=== PATIENT | female | born 2005 | race Caucasian/White ===

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

== ENCOUNTER 2024-04-06 08:17 | Emergency (ER) | payer OTHER, SELFPAY ==
[2024-04-06 08:30] VITALS: BP 105/70; PULSE 80; RESP 18; TEMP 36.4; O2SAT 100
[2024-04-06 08:50] LABS: EDSTREPNEGPOS1 Negative (Negative)
--- NOTE | 2024-04-06 08:59 | ED.URI ---
HPI - URI/Sore Throat General Chief Complaint: Upper Respiratory Infection Stated Complaint: sore throat Time Seen by Provider: 04/06/24 08:19 Source: patient Mode of arrival: ambulatory Limitations: no limitations History of Present Illness HPI Narrative: 18-year-old female presents to [facility] for complaints of sore throat and dry cough for the past 4 days. Patient has been alternating Motrin and Tylenol with little relief. Patient denies fever, body aches, chills, nausea vomiting or diarrhea. Patient reports that she had strep throat earlier this year. Patient denies recent travel. Patient denies sick contacts. MD elicited complaint: cough and sore throat Onset (ago): day(s) (4) Consistency: constant Able to tolerate fluids by mouth: Yes Exacerbating factors: swallowing Treatments prior to arrival: acetaminophen and ibuprofen Related Data Allergies Allergy/AdvReac Type Severity Reaction Status Date / Time No Known Allergies Allergy Verified 04/06/24 08:31 Review of Systems Constitutional: Constitutional: Denies chills, Denies fatigue, Denies fever(s) and Denies weakness ENT: Denies dizziness, Denies epistaxis, Denies nasal congestion and Reports sore throat Respiratory: Respiratory: Reports cough, Denies dyspnea and Denies wheezing Gastrointestinal: Gastrointestinal: Denies diarrhea, Denies nausea and Denies vomiting Integumentary/Breasts: Skin/Breast: Denies rash PMFSH Past Medical History Medical History Anorexia Depression Social History Social History Smoking status: Never smoker Alcohol intake: never Substance use: never Living arrangements: with family Occupation/Education: student Gender identity (if verbalized by the patient): Female Comments At time of signature, I agree with nursing past medical, surgical, social and family history. There is no relevant family history pertinent to the presenting complaint. Exam Const: General: healthy appearing and no acute distress Nutritional Appearance: well nourished Orientation/consciousness: patient oriented x3 Limitations: no limitations HENMT: Head: normal to inspection Ears: external ears normal and TM's normal bilaterally Face/Nose/Sinus: Normal external nose present and Normal nares present Face and sinus: normal facial exam Mouth: Yes Normal oral and palatal mucosa present Teeth and gingiva: dentition normal Other: moderate erythema noted to the wounds oropharynx; 1+ swelling moderate erythema noted to bilateral tonsils. There is no exudate or peritonsillar abscess noted. Eyes: Conjunctivae: conjunctivae normal Neck: Neck: normal visual inspection Resp: Effort & Inspection: normal respiratory effort and not labored Auscultation: clear to auscultation bilaterally, no crackles, no rales, no rhonchi and no wheezes Cardio: Rate: regular rate Rhythm: regular rhythm Heart sounds: no murmurs Skin: General skin exam: normal color Rashes: no rashes Neuro: General: patient oriented x3 Speech: normal speech Gait exam (Neuro): Normal gait present Extrem: General: normal to inspection Psych: Affect: normal affect Attitude: cooperative Course Course Level of Care: Express Care Visit Vital Signs Vital signs: Vital Signs Temperature 36.4 C 04/06/24 08:30 Pulse Rate 80 04/06/24 08:30 Respiratory Rate 18 04/06/24 08:30 Blood Pressure 105/70 04/06/24 08:30 Pulse Oximetry 100 04/06/24 08:30 Oxygen Delivery Room Air 04/06/24 08:30 Temperature 36.4 C 04/06/24 08:30 Pulse Rate 80 04/06/24 08:30 Respiratory Rate 18 04/06/24 08:30 Blood Pressure 105/70 04/06/24 08:30 Pulse Oximetry 100 04/06/24 08:30 Oxygen Delivery Room Air 04/06/24 08:30 MDM - URI/Sore Throat MDM Narrative Medical decision making narrative: Discussed lab results with patient. educated patient to alternate Motrin and Tylenol as needed for symptom relief. Strep culture obtained and sent to lab. Educated patient to proceed to the emergency room if symptoms worsen Differential Diagnosis Differential diagnosis: Likely sinusitis, bronchitis and pharyngitis Lab Data Labs: Lab Results 04/06/24 04/06/24 Range/Units 08:49 09:13 POC SARS CoV-2 Ag Negative (Negative) POC Grp A Strep Screen Negative (Negative) Critical Care Time Critical Care Time Critical Care Time: No Discharge Plan Discharge Clinical Impression: Acute tonsillitis Qualifiers: Pharyngitis/tonsillitis etiology: unspecified etiology Qualified Code(s): J03.90 - Acute tonsillitis, unspecified Patient Disposition: Home, Self-Care Condition: Stable Instructions: Antibiotic Form, Tonsillitis (ED) Additional Instructions: Rest Increase fluids Warm saltwater gargles as needed Take amoxicillin as prescribed Dispose of toothbrush 24 hours after starting antibiotic Follow-up with primary care provider if symptoms not improved Proceed to the emergency room if symptoms worsen Patient Language: Nepali Prescriptions: New amoxicillin 500 mg capsule 500 mg PO Q12H 10 Days Qty: 20 0RF Follow-up/Referrals: PHYSICIAN,DOUBLE NEEDLE OPERATOR LOCKSTITCH [Primary Care Provider] - Stand Alone Forms: Work/School Release IP Time of Disposition: 09:18
[2024-04-06 09:15] LABS: EDCOVIDSCREEN Negative (Negative)
[2024-04-06 13:45] LABS: EDINFLUASCREEN Negative (Negative); EDINFLUBSCREEN Negative (Negative)
--- OUTSIDE RECORDS SUMMARY | 2024-04-13 06:46 | XMS_ITS | Continuity of Care Document ---
Author Name [facility] Organization [facility] Care Team Providers Care Geoint Analyst Name Role Phone [facility] Unavailable Unavailable Problems Combined list of problems from Department of Defense and Veterans Affairs facilities. It does not include entries that were removed or entered in error. Problem Status Onset Date Problem Type Date of Resolution Comme nts Source Scoliosis, unspecified Active Condition [facility] Outpatient Physician Consultation Active Condition [facility] Medications Combined list of outpatient medications from Department of Defense and Veterans Affairs facilities.Medications provided include 1) outpatient medications from the last 15 months, and 2) patient-reported medications. Medication Details Route Status Patient Instructions Prescription Expires Prescription Number Last Dispense Date Ordering Provider Order Date Order Qty Source Afrin 0.05% nasal spray 2 spray(s) , Nostril- Both, BID, not to exceed 2 doses/da y and do not use for more than 3 days., # 15 mL, 0 total refill(s ), Acute, 2 spray(s) Nostril- Both BID,Inst r:not to exceed 2 doses/da y and do not use for more than 3 days., Pharmacy : [facility] Nostri l-Both (into the nose) Discont inued 11/29/2022 15.0 [facility]55[facility] Augmentin 875 mg-125 mg oral tablet 1 tab(s), Oral, every 12 hr, X 7 days, # 14 tab(s), 0 total refill(s ), Acute, 11/29/22 9:44:00 AM CDT, 1 tab(s) Oral every 12 hr,x7 days, Pharmacy : [facility] Oral (given by mouth) Discont inued 11/29/2022 14.0 [facility]55C[facility]iago Flonase 50 mcg/inh nasal spray 100 mcg, Nostril- Both, Daily, # 48 g, 3 total refill(s ), Maintena nce, 100 mcg Nostril- Both Daily, Pharmacy : [facility] Nostri l-Both (into the nose) Discont inued 11/29/2022 48.0 0055C-[address] [place], [place] [address]Bee Das HYDROXYCHLO ROQUINE SULFATE (HYDROXYCHL OROQUINE SULFATE), 200MG, TABLET, ORAL, [facility], 500 ea. BOTTLE Active [id number] 3 2023 30 Pharmac y Data Transac tion Service Facilit y [facility] Sinus Rinse Kit nasal powder for reconstitut ion See Instruct ions, PRN congesti on, Follow package instruct ions for use with purified or distille d water only as needed for congesti on., # 1 EA, 0 total refill(s ), Maintena nce, Follow package instruct ions for use with purified or distille d water only as needed for congesti on.,PRN: congesti on, Pharmacy : [facility] Discont inued 11/29/2022 1.0 0055C-[address] [place], [place] [address]Bee Das phenylephri ne 10 mg oral tablet 1 tab(s), Oral, every 4 hr, PRN congesti on, not to exceed 4 doses/da y, # 36 tab(s), 0 total refill(s ), Acute, 1 tab(s) Oral every 4 hr,PRN:c ongestio n,Instr: not to exceed 4 doses/da y, Pharmacy : [facility] Oral (given by mouth) Discont inued 11/29/2022 36.0 0055C-[address] [place] [address] Thiago predniSONE 10 mg oral tablet See Instruct ions, Take 4 tabs once daily for 7 days then 3 tabs daily for 7 days then 2 tabs daily for 7 days then 1 tab daily for 7 days., # 70 tab(s), 0 total refill(s ), Maintena nce, Take 4 tabs once daily for 7 days then 3 tabs daily for 7 days then 2 tabs daily for 7 days then 1 tab daily for 7 days., Pharmacy : [facility] Ordered 70.0 0055C-[address] [place] [address] Thiago ZyrTEC 10 mg oral tablet 1 tab(s), Oral, Daily, PRN allergy symptoms , # 90 tab(s), 3 total refill(s ), Maintena nce, 1 tab(s) Oral Daily,CT N:allerg y symptoms , Pharmacy : [facility] Oral (given by mouth) Discont inued 11/29/2022 90.0 0055C-[address] [place] [address] Allergies, Adverse Reactions, Alerts Combined list of allergies from Department of Defense and Veterans Affairs facilities. It does not include entries that were removed or entered in error. Substance Category Reaction Severity Reaction type Status Date Reported Comments Source No Known Allergies Drug allergy (disorder) [facility] Immunizations Combined list of available immunizations from the Department of Defense and Veterans Affairs facilities. 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 Source influenza, injectable, quadrivalent- pf 2020 zzLef t Arm [id number] 150 [employer] complet ed influenza , injectabl e, quadrival ent-pf 03/26/21 Given Ambulat ory Pharmac y influenza, injectable, quadrivalent- pf 2020 [id number] 150 Gl[employer]oSmithK[employer] ne complet ed influenza , injectabl e, quadrival ent-pf 03/26/21 Given Ambulat ory Pharmac y Influenza, injectable, quadrivalent, preservative free 1 2020 Unknown, Provider [id number] 150 [employer] (SKB) complet ed Influenza , injectabl e, quadrival ent, preservat scott free [facility] tetanus-dipht h toxoids (Td) adult/adol 2020 zzAdam ht Arm [id number] 09 sanofi pasteur complet ed tetanus-d iphth toxoids (Td) adult/ado l 01/21/21 Given Ambulat ory Pharmac y tetanus-dipht h toxoids (Td) adult/adol 2020 [id number] 09 sanofi pasteur complet ed tetanus-d iphth toxoids (Td) adult/ado l 01/21/21 Given Ambulat ory Pharmac y tetanus and diphtheria toxoids, adsorbed, preservative free, for adult use (2 Lf of tetanus toxoid and 2 Lf of diphtheria toxoid) 1 2020 Unknown, Provider [id number] 09 Sanofi Pasteur (PMC) complet ed tetanus and diphtheri a toxoids, adsorbed, preservat scott free, for adult use (2 Lf of tetanus toxoid and 2 Lf of diphtheri a toxoid) [facility] meningococcal oligosacchari de (MCV4O) 2020 zKulwant ht Arm [id number] 136 GlaxoSmithKli ne complet ed meningoco ccal oligosacc haride (MCV4O) 11/20/20 Given Ambulat ory Pharmac y meningococcal oligosacchari de (MCV4O) 2020 [id number] 136 GlaxoSmithKli ne complet ed meningoco ccal oligosacc haride (MCV4O) 11/20/20 Given Ambulat ory Pharmac y meningococcal oligosacchari de (groups A, C, Y and W-135) diphtheria toxoid conjugate vaccine (MCV4O) 1 2020 Unknown, Provider [id number] 136 [employer]line (SKB) complet ed meningoco ccal oligosacc haride (groups A, C, Y and W-135) diphtheri a toxoid conjugate vaccine (MCV4O) DoD influenza, injectable, quadrivalent- pf 2019 TRANSCR IBED 150 Se[employer] complet ed influenza , injectabl e, quadrival ent-pf 01/11/20 Given Ambulat ory Pharmac y Influenza, injectable, MDCK, preservative free, quadrivalent 2019 ALUL, () Not Given Influenza , injectabl e, MDCK, preservat scott free, quadrival ent DoD Influenza, injectable, quadrivalent, preservative free 1 2019 Unknown, Provider 150 Se[employer] (SEQ) complet ed Influenza , injectabl e, quadrival ent, preservat scott free DoD influenza, injectable, quadrivalent- pf 2018 zzLef t Arm [id number] 150 [employer] complet ed influenza , injectabl e, quadrival ent-pf 03/08/19 Given Ambulat ory Pharmac y influenza, injectable, quadrivalent- pf 2018 [id number] 150 [employer] complet ed influenza , injectabl e, quadrival ent-pf 03/08/19 Given Ambulat ory Pharmac y Influenza, injectable, quadrivalent, preservative free 1 2018 Unknown, Provider [id number] 150 [employer] (SEQ) complet ed Influenza , injectabl e, quadrival ent, preservat scott free DoD influenza, injectable, quadrivalent- pf 2017 zzLef t Arm [id number] 150 GlaxoSmithKli ne complet ed influenza , injectabl e, quadrival ent-pf 02/20/18 Given Ambulat ory Pharmac y influenza, injectable, quadrivalent- pf 2017 [id number] 150 [facility] , injectabl e, quadrival ent-pf 02/20/18 Given Ambulat ory Pharmac y Influenza, injectable, quadrivalent, preservative free 1 2017 Unknown, Provider [id number] 150 [facility] (SKB) complet ed Influenza , injectabl e, quadrival ent, preservat scott free DoD meningococcal A,C,Y,W-135 (MCV4P) 2016 [facility] Arm [id number] 114 [employer] complet ed meningoco ccal A,C,Y,W-1 35 (MCV4P) 03/23/17 Given Ambulat ory Pharmac y tetanus, diphtheria, acellular pertu is 2016 zzL t Arm [id number] 115 [facility] complet ed tetanus, diphtheri a, acellular pertussis 03/23/17 Given Ambulat ory Pharmac y Influenza, inj, MDCK, quadrivalent- pf 2016 zzRig Arm [id number] 171 [employer] complet ed Influenza , inj, MDCK, quadrival ent-pf 03/23/17 Given Ambulat ory Pharmac y Influenza, inj, MDCK, quadrivalent- pf 2016 [id number] 171 [employer] complet ed Influenza , inj, MDCK, quadrival ent-pf 03/23/17 Given Ambulat ory Pharmac y tetanus, diphtheria, acellular pertu is 2016 [id number] 115 [facility] ne complet ed tetanus, diphtheri a, acellular pertussis 03/23/17 Given Ambulat ory Pharmac y meningococcal A,C,Y,W-135 (MCV4P) 2016 [id number] 114 [employer] complet ed meningoco ccal A,C,Y,W-1 35 (MCV4P) 03/23/17 Given Ambulat ory Pharmac y meningococcal polysaccharid e (groups A, C, Y and W-135) diphtheria toxoid conjugate vaccine (MCV4P) 1 2016 Unknown, Provider [id number] 114 [employer]. (NOV) complet ed meningoco ccal polysacch aride (groups A, C, Y and W-135) diphtheri a toxoid conjugate vaccine (MCV4P) DoD tetanus toxoid, reduced diphtheria toxoid, and acellular pertu is vaccine, adsorbed 1 2016 Unknown, Provider [id number] 115 [employer] (SKB) complet ed tetanus toxoid, reduced diphtheri a toxoid, and acellular pertussis vaccine, adsorbed DoD Influenza, injectable, Madin Bonnie Canine Kidney, preservative free, quadrivalent 1 2016 Unknown, Provider [id number] 171 [employer] (SEQ) complet ed Influenza , injectabl e, Madin Troy Canine Kidney, preservat scott free, quadrival ent DoD Human Papillomaviru s 9-valent vaccine 2016 zzLef t Arm [id number] 165 [employer]ck [employer] Inc complet ed Human Papilloma virus 9-valent vaccine 07/21/16 Given Ambulat ory Pharmac y Human Papillomaviru s 9-valent vaccine 2016 [id number] 165 [employer] Inc complet ed Human Papilloma virus 9-valent vaccine 07/21/16 Given Ambulat ory Pharmac y Human Papillomaviru s 9-valent vaccine 1 2016 Unknown, Provider [id number] 165 Merck (MSD) complet ed Human Papilloma virus 9-valent vaccine DoD Human Papillomaviru s,quadrivalen t(HPV4) 2015 TRANSCR IBED 62 complet ed Human Papilloma virus,miracle drivalent (HPV4) 01/08/16 Given Ambulat ory Pharmac y Human Papillomaviru s,quadrivalen t(HPV4) 2015 TRANSCR IBED 62 complet ed Human Papilloma virus,miracle drivalent (HPV4) 01/08/16 Given Ambulat ory Pharmac y human papilloma virus vaccine, quadrivalent 2 2015 Unknown, Provider 62 Transcribed (TRS) complet ed human papilloma virus vaccine, quadrival ent DoD Human Papillomaviru s,quadrivalen t(HPV4) 2015 TRANSCR IBED 62 complet ed Human Papilloma virus,miracle drivalent (HPV4) 11/03/15 Given Ambulat ory Pharmac y Human Papillomaviru s,quadrivalen t(HPV4) 2015 TRANSCR IBED 62 complet ed Human Papilloma virus,miracle drivalent (HPV4) 11/03/15 Given Ambulat ory Pharmac y human papilloma virus vaccine, quadrivalent 1 2015 Unknown, Provider 62 Transcribed (TRS) complet ed human papilloma virus vaccine, quadrival ent DoD influenza, seasonal, injectable 2012 zzLef t Arm [id number] 141 sanofi pasteur complet ed influenza , seasonal, injectabl e 02/22/13 Given Ambulat ory Pharmac y influenza, seasonal, injectable 2012 [id number] 141 sanofi pasteur complet ed influenza , seasonal, injectabl e 02/22/13 Given Ambulat ory Pharmac y Influenza, seasonal, injectable 1 2012 Unknown, Provider [id number] 141 Sanofi Pasteur (PMC) complet ed Influenza , seasonal, injectabl e DoD influenza virus vaccine, live 2011 [id number] 111 Medimmune Inc comple t ed influenza virus vaccine, live 02/07/12 Given Ambulat ory Pharmac y influenza virus vaccine, live 2011 [id number] 111 [employer] Inc comple t ed influenza virus vaccine, live 02/07/12 Given Ambulat ory Pharmac y influenza virus vaccine, live, attenuated, for intranasal use 5 2011 Unknown, Provider [id number] 111 MedImmune, Inc. (MED) complet ed influenza virus vaccine, live, attenuate d, for intranasa l use DoD influenza, seasonal, injectable 2009 TRANSCR IBED 141 complet ed influenza , seasonal, injectabl e 01/04/10 Given Ambulat ory Pharmac y influenza, seasonal, injectable 2009 TRANSCR IBED 141 complet ed influenza , seasonal, injectabl e 01/04/10 Given Ambulat ory Pharmac y Influenza, seasonal, injectable 4 2009 Unknown, Provider 141 Transcribed (TRS) complet ed Influenza , seasonal, injectabl e DoD measles/mumps /rubella virus vaccine 2009 TRANSCR IBED 03 complet ed measles/m umps/rube lla virus vaccine 07/30/09 Given Ambulat ory Pharmac y poliovirus vaccine, inactivated 2009 TRANSCR IBED 10 complet ed polioviru s vaccine, inactivat ed 07/30/09 Given Ambulat ory Pharmac y varicella virus vaccine 2009 TRANSCR IBED 21 complet ed varicella virus vaccine 07/30/09 Given Ambulat ory Pharmac y Hep A, pediatric, unspecified formul 2009 TRANSCR IBED 31 complet ed Hep A, pediatric , unspecifi ed formul 07/30/09 Given Ambulat ory Pharmac y DTaP 2009 TRANSCR IBED 20 complet ed DTaP 07/30/09 Given Ambulat ory Pharmac y measles/mumps /rubella virus vaccine 2009 TRANSCR IBED 03 complet ed measles/m umps/rube lla virus vaccine 07/30/09 Given Ambulat ory Pharmac y DTaP 2009 TRANSCR IBED 20 complet ed DTaP 07/30/09 Given Ambulat ory Pharmac y poliovirus vaccine, inactivated 2009 TRANSCR IBED 10 complet ed polioviru s vaccine, inactivat ed 07/30/09 Given Ambulat ory Pharmac y varicella virus vaccine 2009 TRANSCR IBED 21 complet ed varicella virus vaccine 07/30/09 Given Ambulat ory Pharmac y Hep A, pediatric, unspecified formul 2009 TRANSCR IBED 31 complet ed Hep A, pediatric , unspecifi ed formul 07/30/09 Given Ambulat ory Pharmac y measles, mumps and rubella virus vaccine 2 2009 Unknown, Provider 03 Transcribed (TRS) complet ed measles, mumps and rubella virus vaccine DoD poliovirus vaccine, inactivated 4 2009 Unknown, Provider 10 Transcribed (TRS) complet ed polioviru s vaccine, inactivat ed DoD diphtheria, tetanus toxoids and acellular pertu is vaccine 5 2009 Unknown, Provider 20 Transcribed (TRS) complet ed diphtheri a, tetanus toxoids and acellular pertussis vaccine DoD varicella virus vaccine 2 2009 Unknown, Provider 21 Transcribed (TRS) complet ed varicella virus vaccine DoD hepatitis A vaccine, pediatric dosage, unspecified formulation 2 2009 Unknown, Provider 31 Transcribed (TRS) complet ed hepatitis A vaccine, pediatric dosage, unspecifi ed formulati on DoD influenza virus vaccine, live 2008 TRANSCR IBED 111 complet ed influenza virus vaccine, live 01/10/09 Given Ambulat ory Pharmac y influenza virus vaccine, live 2008 TRANSCR IBED 111 complet ed influenza virus vaccine, live 01/10/09 Given Ambulat ory Pharmac y influenza virus vaccine, live, attenuated, for intranasal use 3 2008 Unknown, Provider 111 Transcribed (TRS) complet ed influenza virus vaccine, live, attenuate d, for intranasa l use DoD Hep A, pediatric, unspecified formul 2006 TRANSCR IBED 31 complet ed Hep A, pediatric , unspecifi ed formul 10/12/06 Given Ambulat ory Pharmac y Hep A, pediatric, unspecified formul 2006 TRANSCR IBED 31 complet ed Hep A, pediatric , unspecifi ed formul 10/12/06 Given Ambulat ory Pharmac y hepatitis A vaccine, pediatric dosage, unspecified formulation 1 2006 Unknown, Provider 31 Transcribed (TRS) complet ed hepatitis A vaccine, pediatric dosage, unspecifi ed formulati on DoD DTaP 2005 TRANSCR IBED 20 complet ed DTaP 02/28/06 Given Ambulat ory Pharmac y poliovirus vaccine, inactivated 2005 TRANSCR IBED 10 complet ed polioviru s vaccine, inactivat ed 02/28/06 Given Ambulat ory Pharmac y influenza, seasonal, injectable 2005 TRANSCR IBED 141 complet ed influenza , seasonal, injectabl e 02/28/06 Given Ambulat ory Pharmac y influenza, seasonal, injectable 2005 TRANSCR IBED 141 complet ed influenza , seasonal, injectabl e 02/28/06 Given Ambulat ory Pharmac y poliovirus vaccine, inactivated 3 2005 Unknown, Provider 10 Transcribed (TRS) complet ed polioviru s vaccine, inactivat ed DoD diphtheria, tetanus toxoids and acellular pertu is vaccine 4 2005 Unknown, Provider 20 Transcribed (TRS) complet ed diphtheri a, tetanus toxoids and acellular pertussis vaccine DoD Influenza, seasonal, injectable 2 2005 Unknown, Provider 141 Transcribed (TRS) complet ed Influenza , seasonal, injectabl e DoD pneumococcal 7-valent vaccine 2005 TRANSCR IBED 100 complet ed pneumococ daniel 7-valent vaccine 11/26/05 Given Ambulat ory Pharmac y Hib, unspecified formulation 2005 TRANSCR IBED 17 complet ed Hib, unspecifi ed formulati on 11/26/05 Given Ambulat ory Pharmac y pneumococcal 7-valent vaccine 2005 TRANSCR IBED 100 complet ed pneumococ daniel 7-valent vaccine 11/26/05 Given Ambulat ory Pharmac y Hib, unspecified formulation 2005 TRANSCR IBED 17 complet ed Hib, unspecifi ed formulati on 11/26/05 Given Ambulat ory Pharmac y Haemophilus influenzae type b vaccine, conjugate unspecified formulation 4 2005 Unknown, Provider 17 Transcribed (TRS) complet ed Haemophil us influenza e type b vaccine, conjugate unspecifi ed formulati on DoD pneumococcal conjugate vaccine, 7 valent 4 2005 Unknown, Provider 100 Transcribed (TRS) complet ed pneumococ daniel conjugate vaccine, 7 valent DoD tuberculin purified protein derivative 2005 TRANSCR IBED 96 complet ed Patient Tolerance : Negative Ambulat ory Pharmac y varicella virus vaccine 2005 TRANSCR IBED 21 complet ed varicella virus vaccine 08/27/05 Given Ambulat ory Pharmac y measles/mumps /rubella virus vaccine 2005 TRANSCR IBED 03 complet ed measles/m umps/rube lla virus vaccine 08/27/05 Given Ambulat ory Pharmac y tuberculin purified protein derivative 2005 TRANSCR IBED 96 complet ed tuberculi n purified protein derivativ e 08/27/05 Given Ambulat ory Pharmac y varicella virus vaccine 2005 TRANSCR IBED 21 complet ed varicella virus vaccine 08/27/05 Given Ambulat ory Pharmac y measles/mumps /rubella virus vaccine 2005 TRANSCR IBED 03 complet ed measles/m umps/rube lla virus vaccine 08/27/05 Given Ambulat ory Pharmac y measles, mumps and rubella virus vaccine 1 2005 Unknown, Provider 03 Transcribed (TRS) complet ed measles, mumps and rubella virus vaccine DoD varicella virus vaccine 1 2005 Unknown, Provider 21 Transcribed (TRS) complet ed varicella virus vaccine DoD tuberculin skin test; purified protein derivative solution, intradermal 1 2005 Unknown, Provider 96 Transcribed (TRS) complet ed tuberculi n skin test; purified protein derivativ e solution, intraderm al DoD hepatitis B pediatric/ado lescent 2005 TRANSCR IBED 08 complet ed hepatitis B pediatric /adolesce nt 05/30/05 Given Ambulat ory Pharmac y hepatitis B pediatric/ado lescent 2005 TRANSCR IBED 08 complet ed hepatitis B pediatric /adolesce nt 05/30/05 Given Ambulat ory Pharmac y hepatitis B vaccine, pediatric or pediatric/ado lescent dosage 3 2005 Unknown, Provider 08 Transcribed (TRS) complet ed hepatitis B vaccine, pediatric or pediatric /adolesce nt dosage DoD DTaP 2004 TRANSCR IBED 20 complet ed DTaP 03/01/05 Given Ambulat ory Pharmac y influenza, seasonal, injectable 2004 TRANSCR IBED 141 complet ed influenza , seasonal, injectabl e 03/01/05 Given Ambulat ory Pharmac y pneumococcal 7-valent vaccine 2004 TRANSCR IBED 100 complet ed pneumococ daniel 7-valent vaccine 03/01/05 Given Ambulat ory Pharmac y Hib, unspecified formulation 2004 TRANSCR IBED 17 complet ed Hib, unspecifi ed formulati on 03/01/05 Given Ambulat ory Pharmac y pneumococcal 7-valent vaccine 2004 TRANSCR IBED 100 complet ed pneumococ daniel 7-valent vaccine 03/01/05 Given Ambulat ory Pharmac y influenza, seasonal, injectable 2004 TRANSCR IBED 141 complet ed influenza , seasonal, injectabl e 03/01/05 Given Ambulat ory Pharmac y Hib, unspecified formulation 2004 TRANSCR IBED 17 complet ed Hib, unspecifi ed formulati on 03/01/05 Given Ambulat ory Pharmac y DTaP 2004 TRANSCR IBED 20 complet ed DTaP 03/01/05 Given Ambulat ory Pharmac y Haemophilus influenzae type b vaccine, conjugate unspecified formulation 3 2004 Unknown, Provider 17 Transcribed (TRS) complet ed Haemophil us influenza e type b vaccine, conjugate unspecifi ed formulati on DoD diphtheria, tetanus toxoids and acellular pertu is vaccine 3 2004 Unknown, Provider 20 Transcribed (TRS) complet ed diphtheri a, tetanus toxoids and acellular pertussis vaccine DoD pneumococcal conjugate vaccine, 7 valent 3 2004 Unknown, Provider 100 Transcribed (TRS) complet ed pneumococ daniel conjugate vaccine, 7 valent DoD Influenza, seasonal, injectable 1 2004 Unknown, Provider 141 Transcribed (TRS) complet ed Influenza , seasonal, injectabl e DoD poliovirus vaccine, inactivated 2004 TRANSCR IBED 10 complet ed polioviru s vaccine, inactivat ed 04 Given Ambulat ory Pharmac y Hib, unspecified formulation 2004 TRANSCR IBED 17 complet ed Hib, unspecifi ed formulati on 04 Given Ambulat ory Pharmac y pneumococcal 7-valent vaccine 2004 TRANSCR IBED 100 complet ed pneumococ daniel 7-valent vaccine 04 Given Ambulat ory Pharmac y DTaP 2004 TRANSCR IBED 20 complet ed DTaP 04 Given Ambulat ory Pharmac y poliovirus vaccine, inactivated 2004 TRANSCR IBED 10 complet ed polioviru s vaccine, inactivat ed 04 Given Ambulat ory Pharmac y Hib, unspecified formulation 2004 TRANSCR IBED 17 complet ed Hib, unspecifi ed formulati on 04 Given Ambulat ory Pharmac y poliovirus vaccine, inactivated 2 2004 Unknown, Provider 10 Transcribed (TRS) complet ed polioviru s vaccine, inactivat ed DoD Haemophilus influenzae type b vaccine, conjugate unspecified formulation 2 2004 Unknown, Provider 17 Transcribed (TRS) complet ed Haemophil us influenza e type b vaccine, conjugate unspecifi ed formulati on DoD diphtheria, tetanus toxoids and acellular pertu is vaccine 2 2004 Unknown, Provider 20 Transcribed (TRS) complet ed diphtheri a, tetanus toxoids and acellular pertussis vaccine DoD pneumococcal conjugate vaccine, 7 valent 2 2004 Unknown, Provider 100 Transcribed (TRS) complet ed pneumococ daniel conjugate vaccine, 7 valent DoD poliovirus vaccine, inactivated 2004 TRANSCR IBED 10 complet ed polioviru s vaccine, inactivat ed 04 Given Ambulat ory Pharmac y DTaP 2004 TRANSCR IBED 20 complet ed DTaP 04 Given Ambulat ory Pharmac y pneumococcal 7-valent vaccine 2004 TRANSCR IBED 100 complet ed pneumococ daniel 7-valent vaccine 04 Given Ambulat ory Pharmac y Hib, unspecified formulation 2004 TRANSCR IBED 17 complet ed Hib, unspecifi ed formulati on 04 Given Ambulat ory Pharmac y DTaP 2004 TRANSCR IBED 20 complet ed DTaP 04 Given Ambulat ory Pharmac y pneumococcal 7-valent vaccine 2004 TRANSCR IBED 100 complet ed pneumococ daniel 7-valent vaccine 04 Given Ambulat ory Pharmac y poliovirus vaccine, inactivated 2004 TRANSCR IBED 10 complet ed polioviru s vaccine, inactivat ed 04 Given Ambulat ory Pharmac y poliovirus vaccine, inactivated 1 2004 Unknown, Provider 10 Transcribed (TRS) complet ed polioviru s vaccine, inactivat ed DoD Haemophilus influenzae type b vaccine, conjugate unspecified formulation 1 2004 Unknown, Provider 17 Transcribed (TRS) complet ed Haemophil us influenza e type b vaccine, conjugate unspecifi ed formulati on DoD diphtheria, tetanus toxoids and acellular pertu is vaccine 2004 Unknown, Provider 20 Transcribed (TRS) complet ed diphtheri a, tetanus toxoids and acellular pertussis vaccine DoD pneumococcal conjugate vaccine, 7 valent 1 2004 Unknown, Provider 100 Transcribed (TRS) complet ed pneumococ daniel conjugate vaccine, 7 valent DoD hepatitis B pediatric/ado lescent 2004 TRANSCR IBED 08 complet ed hepatitis B pediatric /adolesce nt 04 Given Ambulat ory Pharmac y hepatitis B vaccine, pediatric or pediatric/ado lescent dosage 2 2004 Unknown, Provider 08 Transcribed (TRS) complet ed hepatitis B vaccine, pediatric or pediatric /adolesce nt dosage DoD hepatitis B pediatric/ado lescent 2004 TRANSCR IBED 08 complet ed hepatitis B pediatric /adolesce nt 04 Given Ambulat ory Pharmac y hepatitis B pediatric/ado lescent 2004 TRANSCR IBED 08 complet ed hepatitis B pediatric /adolesce nt 04 Given Ambulat ory Pharmac y hepatitis B vaccine, pediatric or pediatric/ado lescent dosage 1 2004 Unknown, Provider 08 Transcribed (TRS) complet ed hepatitis B vaccine, pediatric or pediatric /adolesce nt dosage DoD Vital Signs Combined list of inpatient and outpatient Vital Signs from Department of Defense and Veterans Affairs, ranging from 12 months to all on record, depending upon the facility. Vital Sign Value Date Comments Source Systolic Blood Pressure 111mm[Hg] 11/10/2022 19:47:00 Ambulatory Pharmacy Diastolic Blood Pressure 79mm[Hg] 11/10/2022 19:47:00 Ambulatory Pharmacy Mean Arterial Pressure, Calc 90mm[Hg] 11/10/2022 19:47:00 Ambulatory P harmacy Peripheral Pulse Rate 92bpm 11/10/2022 19:47:00 Ambulatory Pharmacy Respiratory Rate 16br/min 11/10/2022 19:47:00 Ambulatory Pharmacy Temperature Oral 36.6Cel 11/10/2022 19:47:00 Ambulatory Pharmacy BP Site 11/10/2022 19:47:00 Ambul atory Pharmacy Blood Pressure Manual 11/10/2022 19:47:00 Ambulatory Pharmacy Encounters Combined list of: 1) Encounters from Department of Veterans Affairs facilities going back up to thelast 18 months. 2) Encounters from the Department of [facility] facilities going back up to 280 months. Location Location Details Encounter Type Encounter Number Reason For Visit Attending Provider ADM Date DC Date Status Disposition Source [address] [place] [address])(Ilo tt Flight Medicine Tm) TELE CONSULT [id number] Notes Entered by: LINDA COOL 29 Apr 2013 1553 ------- ------- ------- ------- -- Network Results -EMMANUEL REYNA 3 SUYAPA MORAN 04/[address] [place] [address] Thiago Jose Antonio [facility]S cott Flight Medicin e Tm) [address] [place] [address] Thiago [facility])(War rior Op Med Cln Tm A Ad) OUTPATIENT [id number] wart removal . DAISY MONTALVO 07/21 Released w/o Limitations [address] [place] [address] Thiago Jose Antonio [facility])(W arrior Op Med Cln Tm A Ad) [address] [place] [address])(Sco tt Peds Team Angel Luis) OUTPATIENT [id number] xb R knee pain/bu ckling/ / JOHNNY REED 11/08 Released w/o Limitations [address] [place] [address] Group Th[place]ago [place]EMP [place] Peds Team Angel Luis) [address] [place] [address] Thiago VIRIDIANA [facility]Min or Procedure Clinic) OUTPATIENT [id number] Pain in right knee INDIGO KEYS Dk 11/15 Released w/o Limitations [address] [place] [address] Group Thiago KEMP [place]M inor Procedu re Clinic) [address] [place] [address] Thiago [facility])(Sco tt Peds Team Angel Luis) TELE CONSULT [id number] Notes Entered by: OTONIEL PINO 22 Dec 2016 1037 ------- ------- ------- ------- -- Network results Physica l Therapy 017 AMD CARLOS A MARIA 12/[address] [place] [address] Thiago JORGE LUISJose Antonio ([facility]S cott Peds Team Angel Luis) [address] [place] [address] Thiago [facility])(Ilo tt Peds Team Angel Luis) OUTPATIENT [id number] [facility] [id number] CARLOS A MARIA 05/30 Released w/o Limitations [address] [place] [address] Thiago [facility])(S cott Peds Team Angel Luis) [address] [place] [address] Thiago [facility])(Ilo tt Peds Team Angel Luis) OUTPATIENT [id number] nodule behind right ear and physica l CARLOS A MARIA 11/07 Released w/o Limitations [address] [place] [address] Thiago [facility])(S cott Peds Team Angel Luis) [address] [place] [address] Thiago [facility])(Sco tt Peds Team Angel Luis) TELE CONSULT [id number] Notes Entered by: KARLO ELLIS 13 Nov 2017 0730 ------- ------- ------- ------- -- X ray CARLOS A MARIA 11/[address] [place] [address] Thiago JORGE LUISB ([facility]S cott Peds Team Angel Luis) [address] [place] [address] Thiago B [facility])(Sco tt Peds Team Angel Luis) OUTPATIENT [id number] 5 School / sports physica l [id number] TERESA CADENA 11/23 Released w/o Limitations [address] [place] [address] Group Thiago [facility])(S cott Peds Team Angel Luis) [address] [place] [address])([facility] [place] Luis) TELE CONSULT [id number] 5 Notes Entered by: KATHY HERNANDEZ 25 Dec 2018 0854 ------- ------- ------- ------- -- orthope dic referra l/ broken index finger right hand/Tu CIRA Helms 12/25 Referred for Appointment [address] [place] [address])(S cott Peds Team Angel Luis) [address] [place] [address])([facility] [place] [place] Luis) TELE CONSULT [id number] 5 Notes Entered by: Madelyn ROBERTSON 01 Jan 2019 1449 ------- ------- ------- ------- -- Network results Ortho 12/28/19 19 RODNEYB TERESA CADENA 01/[address] [place] [address] Group [facility])(S cott Peds Team Angel Luis) [address] [place] [address])(Ilo tt Peds Team Angel Luis) OUTPATIENT [id number] Rash on edie fac x 1 week TERESA CADENA 02/21 Released w/o Limitations [address] [place] [address])(S cott Peds Team Angel Luis) [address] [place] [address])(Ilo tt Peds Team Angel Luis) TELE CONSULT [id number] 4 Notes Entered by: CHAYITO CRISTINA 02 Oct 2019 1136 ------- ------- ------- ------- -- Sinan loomisa l/Turne r [phone] JOSEPH WALDRON 10/01 Other Not Elsewhere Classified [address] [place] [address])(S cott Peds Team Angel Luis) [address] [place] [address])(Ilo tt Peds Team Angel Luis) TELE CONSULT [id number] Notes Entered by: ARAVIND BYRNE 10 Oct 2019 0928 ------- ------- ------- ------- -- Physica l/CIRA Cabral 10/09 Other Not Elsewhere Classified [address] [place] [address] Group [facility])(S cott Peds Team Angel Luis) [address] [place] [address])([facility] [place] [facility] [place] Luis) OUTPATIENT [id number] School Physica l TERESA CADENA 11/14 Released w/o Limitations [address] [place] [address])(S cott Peds Team Angel Luis) [address] [place] [address])([facility] [place] [facility] [place] Luis) TELE CONSULT [id number] Notes Entered by: MARIELOS CHEATHAM 27 Mar 2020 0816 ------- ------- ------- ------- -- SX -Headac he, Fatigue - Positiv e Exposur e/ [place]/ - [facility] EDDI POP 03/27 Released to Self [facility] [address] [place] [address])(S cott Peds Team Angel Luis) [address] [place] [address])([facility] [place] [facility] [place] Luis) TELE CONSULT [id number] 2 Notes Entered by: Mary ENRIQUEZ 08 Oct 2020 0920 ------- ------- ------- ------- -- NAL Encount er/ L ankle Injury/ Gigi/ [id number] GIGIRIKKI NAIDA 10/[address] [place] [address])(S cott Peds Team Angel Luis) [address] [place] [address])([facility] [place] Luis) TELE CONSULT [id number] 2 Notes Entered by: CINDY KIMBROUGH 08 Oct 2020 1333 ------- ------- ------- ------- -- ER F/U - Referra l request - [facility] ([facility] - EDDI Rai 10/08 Other Not Elsewhere Classified [address] [place] [address])(S cott Peds Team Angel Luis) [address] [place] [address])(Sco tt Peds Team Angel Luis) TELE CONSULT [id number] 9 Notes Entered by: Michael STEEL 23 Nov 2020 1015 ------- ------- ------- ------- -- F/u SHAWNA BENITEZ 11/[address] [place] [address])(S cott Peds Team Angel Luis) [address] [place] [address])(Spo rts Med Clinic/Pa in Mgmt) OUTPATIENT [id number] SPORT/L EFT ANKLE PAIN ARLINAL PEG HARMON 11/24 Released w/o Limitations [address] [place] [address])(S ports Med Clinic/ Pain Mgmt) [address] [place] [address])(Sco tt Peds Team Angel Luis) TELE CONSULT [id number] 5 Notes Entered by: Michael KEYS 26 Nov 2020 1055 ------- ------- ------- ------- -- Network results Physica l Therapy 021 SHAWNA FORDE 11/[address] [place] [address])(S cott Peds Team Angel Luis) [address] [place] [address])(Spo rts Med Clinic/Pa in Mgmt) TELE CONSULT [id number] 5 Notes Entered by: GENARO PAINTING 11 Dec 2020 1626 ------- ------- ------- ------- -- result PEG HARMON 12/[address] [place] [address])(S ports Med Clinic/ Pain Mgmt) [address] [place] [address])(Sco tt Peds Team Angel Luis) TELE CONSULT [id number] 2 Notes Entered by: CINDY KIMBROUGH 25 Dec 2020 1221 ------- ------- ------- ------- -- Appt florinda - Rodrick - [phone] - ([facility] kelly) JACOB Mendosa 12/25 Other Not Elsewhere Classified [address] [place] [address] Group [facility])(S cott Peds Team Angel Luis) [address] [place] [address])(Ilo tt Peds Team Angel Luis) OUTPATIENT [id number] Virtual f/u weight concern s SHAWNA STARR 01/01 Released w/o Limitations [address] [place] [address])(S cott Peds Team Angel Luis) [address] [place] [address])([facility] [place] [facility] [place] Luis) TELE CONSULT [id number] Notes Entered by: SHAWNA STARR 04 Jan 2021 1649 ------- ------- ------- ------- -- F/u MAAME Vickers 01/04 Referred for Appointment [address] [place] [address])(S cott Peds Team Angel Luis) [address] [place] [address])(Ilo tt Peds Team Angel Luis) TELE CONSULT [id number] Notes Entered by: SHAWNA STARR 13 Jan 2021 0834 ------- ------- ------- ------- -- F/u symptom SHAWNA STARR 01/[address] [place] [address])(S cott Peds Team Angel Luis) [address] [place] [address])([facility] [place] Luis) TELE CONSULT [id number] 8 Notes Entered by: SHAWNA STARR 18 Jan 2021 1609 ------- ------- ------- ------- -- F/u JACOB Baig 01/18 Other Not Elsewhere Classified [address] [place] [address])(S cott Peds Team Angel Luis) [address] [place] [address])([facility] Luis) OUTPATIENT [id number] EKG/lab work visit SHAWNA STARR 01/19 Released w/o Limitations [address] [place] [address])(S cott Peds Team Angel Luis) [address] [place] [address])([facility] Luis) TELE CONSULT [id number] Notes Entered by: NATALIE TSAI 05 Feb 2021 1058 ------- ------- ------- ------- -- Rx Kj /RODRICK/ JIMBO QUESADA 02/05 Medication Refill Forwarded [address] [place] [address])(S cott Peds Team Angel Luis) [address] [place] [address])([facility] [place] [facility] Luis) TELE CONSULT [id number] 5 Notes Entered by: RINKU COLLINS 23 Mar 2021 1307 ------- ------- ------- ------- -- Network Results Adolesc ent Medicin e 021 KSP SHAWNA STARR 03/[address] [place] [address])([facility] Angel Luis) [address] [place] [address])([facility] Luis) TELE CONSULT [id number] 5 Notes Entered by: SHAWNA STARR 25 Mar 2021 0747 ------- ------- ------- ------- -- Schedanabel e f/u appt. MAAME EMMANUEL 03/25 Other Not Elsewhere Classified [address] [place] [address])(S cott Peds Team Angel Luis) [address] [place] [address])([facility] [place] Luis) OUTPATIENT [id number] F2F- Repeat EKG F/u [phone] SHAWNA STARR 03/25 Released w/o Limitations [address] [place] [address])([facility] Angel Luis) [address] [place] [address])([facility] Peds [facility]) TELE CONSULT [id number] Notes Entered by: MARLIN ROGER 23 May 2022 0759 ------- ------- ------- ------- -- Rash spreadi ng/THIAGO SM/Asbu MARLIN Conklin 05/23 Other Not Elsewhere Classified [address] [place] [address])([facility] Peds [facility]) [address] [place] [address])([facility] Peds Team [facility]) TELE CONSULT [id number] 9 Notes Entered by: MARLIN ROGER 07 Jun 2022 0343 ------- ------- ------- ------- -- [facility] [place] follow up/rash /Moll MARLIN MANCUSO 06/07 Referred for Appointment [address] [place] [address])([facility] Peds [facility]) [address] [place] [address])([facility] Peds Team [facility]) OUTPATIENT [id number] CLINIC- [facility] F/U, FACIAL RASH, WORSE, SEEK FURTHER JOHNNY LAMB 06/07 Released w/o Limitations [address] [place] [address])([facility]) [address] [place] [address])([facility] Peds Team [facility]) TELE CONSULT [id number] Notes Entered by: MARLIN ROGER 15 Jun 2022 1133 ------- ------- ------- ------- -- Facial swellin g/rash f/u-THIAGO SM/Asbu MARLIN Conklin 06/15 Other Not Elsewhere Classified [address] [place] [address])([facility] Peds Team [facility]) [address] [place] [address])(Sco tt Peds Team Angel Luis) OUTPATIENT [id number] body Rash SX persist , f2f appt DEREKJOHNNY Dk 06/27 Released w/o Limitations [address] [place] [address])(S cott Peds Team Angel Luis) Procedures Combined list of: 1) Procedures from Department of Veterans Affairs facilities going back up to thelast 18 months, not all VA non-surgical procedures are included; 2) All procedures from the Department of Defense facilities. Procedure Procedure Type Code Date Perfomer Comments Sourc e Extraction, erupted tooth requiring removal of bone and/or sectioning of tooth, 1 0055C- [id number] t Psychometric Emotional / Behavioral A e ment Psychometric Emotional / Behavioral Assessment 92121 8 CARLOS A MARIA [facility] Screening Test Of Visual Acuity, Quantitative, Bilateral Screening Test Of Visual Acuity, Quantitative, Bilateral 51705 8 CARLOS A MARIA [facility] Destruction Of Flat Warts By Cryosurgery Up To 14 Lesions Destruction Of Flat Warts By Cryosurgery Up To 14 Lesions 03149 7 DAISY MONTALVO [facility] Screening Test Of Visual Acuity, Quantitative, Bilateral Screening Test Of Visual Acuity, Quantitative, Bilateral [id number] TERESA CADENA Non-Physician Phone Call To Patient/Provider Brief (5-10min) Non-Physician Phone Call To Patient/Provider Brief (5-10min) [id number] CIRA COHEN [facility] Non-Physician Phone Call To Pt/Provider Intermed (11-20 min) Non-Physician Phone Call To Pt/Provider Intermed (11-20 min) [id number] EDDI POP [facility] Ultrasound Ankle Left Ultrasound Ankle Left [id number] PEG HARMON Ankle orthosis, ankle gauntlet or similar, with or without joints, prefabricated, [id number] PEG HARMON ECG Standard ECG Standard 96253 ESTELLE STARR [facility] TELE ASSESS & MGT SRV PROV QUAL NONPHYS HLTH CARE PRO TO EST PAT,PARENT,GUARD NOT ORIG REL ASSESS & MGT SRV PROV W/IN PREV 7 DAYS NOR LEAD ASSESS & MGT SRV/PX W/IN NXT 24 HR/SOON APT;5-10 MIN MED DIS 1 DoD ELECTROCARDIOGRAM, ROUTINE ECG WITH AT LEAST 12 LEADS; WITH INTERPRETATION AND REPORT 1 DoD TELE ASSESS & MGT SRV PROV QUAL NONPHYS HLTH CARE PRO TO EST PAT,PARENT,GUARD NOT ORIG REL ASSESS & MGT SRV PROV W/IN PREV 7 DAYS NOR LEAD ASSESS & MGT SRV/PX W/IN NXT 24 HR/SOON APT;5-10 MIN MED DIS 1 DoD TELE ASSESS & MGT SRV PROV QUAL NONPHYS HLTH CARE PRO TO EST PAT,PARENT,GUARD NOT ORIG REL ASSESS & MGT SRV PROV W/IN PREV 7 DAYS NOR LEAD ASSESS & MGT SRV/PX W/IN NXT 24 HR/SOON APT;5-10 MIN MED DIS 1 DoD TELE ASSESS & MGT SRV PROV QUAL NONPHYS HLTH CARE PRO TO EST PAT,PARENT,GUARD NOT ORIG REL ASSESS & MGT SRV PROV W/IN PREV 7 DAYS NOR LEAD ASSESS & MGT SRV/PX W/IN NXT 24 HR/SOON APT;5-10 MIN MED DIS 1 DoD ANKLE ORTHOSIS, ANKLE GAUNTLET OR SIMILAR, WITH OR WITHOUT JOINTS, PREFABRICATED, [id number] 1 DoD TELE ASSESS & MGT SRV PROV QUAL NONPHYS HLTH CARE PRO TO EST PAT,PARENT,GUARD NOT ORIG REL ASSESS & MGT SRV PROV W/IN PREV 7 DAYS NOR LEAD ASSESS & MGT SRV/PX W/IN NXT 24 HR/SOON APT;5-10 MIN MED DIS 1 DoD TELE ASSESS & MGT SRV PROV QUAL NONPHYS HLTH CARE PRO TO EST PAT,PARENT,GUARD NOT ORIG REL ASSESS & MGT SRV PROV W/IN PREV 7 DAYS NOR LEAD ASSESS & MGT SRV/PX W/IN NXT 24H/SOON APT; 11-20 MIN MED DIS 0 DoD SCREENING TEST OF VISUAL ACUITY, QUANTITATIVE, BILATERAL 0 DoD TELE ASSESS & MGT SRV PROV QUAL NONPHYS HLTH CARE PRO TO EST PAT,PARENT,GUARD NOT ORIG REL ASSESS & MGT SRV PROV W/IN PREV 7 DAYS NOR LEAD ASSESS & MGT SRV/PX W/IN NXT 24 HR/SOON APT;5-10 MIN MED DIS 0 DoD TELE ASSESS & MGT SRV PROV QUAL NONPHYS HLTH CARE PRO TO EST PAT,PARENT,GUARD NOT ORIG REL ASSESS & MGT SRV PROV W/IN PREV 7 DAYS NOR LEAD ASSESS & MGT SRV/PX W/IN NXT 24 HR/SOON APT;5-10 MIN MED DIS 9 DoD SCREENING TEST OF VISUAL ACUITY, QUANTITATIVE, BILATERAL 9 DoD BRIEF EMOTIONAL/BEHAVIORA L ASSESSMENT (EG, DEPRESSION INVENTORY, ATTENTION-DEFICIT/H YPERACTIVITY DISORDER [ADHD] SCALE), WITH SCORING AND DOCUMENTATION, PER STANDARDIZED INSTRUMENT 8 DoD DESTRUCTION (EG, LASER SURGERY, ELECTROSURGERY, CRYOSURGERY, CHEMOSURGERY, SURGICAL CURETTEMENT), OF BENIGN LESIONS OTHER THAN SKIN TAGS OR CUTANEOUS VASCULAR PROLIFERATIVE LESIONS; UP TO 14 LESIONS 7 DoD Social History Combined list of available smoking, tobacco, and other social history from Department of Defense and Veterans Affairs facilities. Social History Type Response Date Comment Sour e Female 08/03/2022 Ambulatory Pha rmacy Tobacco Never-cigarette user Cigarette use:. Never-other tobacco user (not cigarettes) Other Tobacco use:. Ambulatory Pharmacy Sexual Orientation Ambula tory Pharmacy Gender identity Ambulator y Pharmacy This section is an empty social history section. DoD Assessment and Plan Combined list of future care activities from Department of Defense and Veterans Affairs facilities (e.g., assessment and plan notes, appointments, orders, and referrals). Additional future care activities may be listed in the Plan of Care section. Result Assessment and Plan Date Source Assessment and Plan Extracted from:Title : 0055 BCC Rash Author: DAVID BRYSON PA Date: 11/10/22 1.?Rash 17 y/o female presents complaining of a raised, itchy, painful, dry rash with well-defined raised borders, erythematousWith excoriation/lichenification appearance on her arms and shoulders.? Patient states she got this rash about 6-8 months ago and has tried multiple topical and oral antifungals as well as topical steroid creams.? Patient has found no success.? Patient states she has a referral for dermatology but states she cannot get an appointment for about another 6-8 months.? Suspect patient may have nummular eczema ? -Take prednisone 10 mg 4 tabs once daily for 7 days then 3 tabs once daily for 7 days then 2 tabs once daily for 7 days then 1 tab once daily for 7 days. -Changed dermatology referral rendering provider on [employer]. -Printed out information for patient. -F/u in 1 month.? Will consider topical clobetasol ointment next. ? Ordered: predniSONE(predniSONE 10 mg oral tablet), See Instructions, Take 4 tabs once daily for 7 days then 3 tabs daily for 7 days then 2 tabs daily for 7 days then 1 tab daily for 7 days., # 70 tab(s), 0 total refill(s), Maintenance, Take 4 tabs once daily for 7 days then 3 tabs daily for 7 days the... ? 04/13/2024 Ambulatory Pharmacy Functional Status Combined list of recent functional and cognitive assessments recorded at Department of Defense and Veterans Affairs (VA).VA Functional Keller Measurement (FIM) Scale: 1 = Total Assistance (Subject = 0% +), 2 = Maximal Assistance (Subject = 25% +), 3 = Moderate Assistance (Subject = 50% +), 4 = Minimal Assistance (Subject = 75% +), 5 = Supervision, 6 = Modified Keller (Device), 7 = Complete Keller (Timely, Safely). Assessment Date/Time Source Assessment Type Assessment Skill Assessment Score Assessment Details No data available for this section
--- OUTSIDE RECORDS SUMMARY | 2024-04-13 06:47 | XMS_ITS | Patient Health Summary ---
Author Organization [facility] Address [address] [place] [address] Care Team Providers Care Head Swamper Name Role Phone Aric Obrien DO Primary Care Provider [phone] Note from [facility],non-owned Affiliates and Associated Physician Practices is amultiple site organization consisting of ambulatory clinics and hospital sitesin [place], [place], [place] and [place]. This disclosure is being madepursuant to the Care Everywhere program and may not contain all information available regarding this patient. Last updated 18.[facility] Allergies No known active allergies Medications Be aware that medications may not be up to date on this document. Always verify current medications with the patient. No known medications Social History Tobacco Use Types Packs/Day Years Used Date Smoking Tobacco: Never Smokeless Tobacco: Never Sex and Gender Information Value Date Recorded Sex Assigned at Not on file Gender Identity Not on file Sexual Orientation Not on file Last Filed Vital Signs Vital Sign Reading Time Taken Comments Blood Pressure - - Pulse - - Temperature - - Respiratory Rate - - Oxygen Saturation - - Inhaled Oxygen Concentration - - Weight 46.1 kg (101 lb 10.1 oz) 019 11:09 AM CDT Height 167 cm (5' 5.75 ) 12/27/2018 11: 09 AM CDT Body Mass Index 16.53 12/27/2018 11:09 AM CDT Body Mass Index Percentile 9.56% 12/27 11:09 AM CDT Growth Chart: CDC (Girls, 2- 20 Years) Care Teams Head Swamper Relationship Specialty Start Date End Date Aric Obrien DO PCP - General Pediatrics 12/25/18
--- OUTSIDE RECORDS SUMMARY | 2024-04-13 06:47 | XMS_ITS | Encounter Summary ---
Author Organization [facility] Address [address] [place] [address] Care Team Providers Care Magento Web Developer Name Role Phone Unavailable Primary Care Provider Unavailabl e Encounter Details Date Type Department Care Team (Late st Contact Info) Description 04/21/2021 3:55 PM SUSTAINABILITY ENGINEER Immunization [place] [facility] PED - [facility] 2 Mobile Immunization [phone] [id number] Need for vaccination (Primary Dx) Social History Tobacco Use Types Packs/Day Years Used Date Smoking Tobacco: Never Assessed Comments Unknown Sex and Gender Information Value Date Recorded Sex Assigned at Not on file Legal Sex Female 2:53 PM SUSTAINABILITY ENGINEER Gender Identity Not on file Sexual Orientation Not on file documented as of this encounter Plan of Treatment Not on file documented as of this encounter Visit Diagnoses Diagnosis Need for vaccination- Primary Need for prophylactic vaccination and inoculation against unspecified single disease documented in this encounter
--- OUTSIDE RECORDS SUMMARY | 2024-04-13 06:47 | XMS_ITS | Encounter Summary ---
Author Organization [facility] Address [address] [place] [address] Care Team Providers Care Php Engineer Name Role Phone Unavailable Primary Care Provider Unavailabl e Encounter Details Date Type Department Care Team (Late st Contact Info) Description 03/27/2020 Lab Requisition [facility] Community [facility] [address] [place] [address] Miles, [place] [address] [place] [address] Social History Tobacco Use Types Packs/Day Years Used Date Smoking Tobacco: Never Assessed Comments Unknown Sex and Gender Information Value Date Recorded Sex Assigned at Not on file Legal Sex Female 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
--- OUTSIDE RECORDS SUMMARY | 2024-04-13 06:47 | XMS_ITS | Referral Summary ---
Author Organization [facility] Address [address] [place] [address] Care Team Providers Care Air Brake Rigger Name Role Phone Aric Obrien DO Primary Care Provider [phone] Source Comments [facility] [employer] [employer],non-owned Affiliates and Associated Physician Practices is amultiple site organization consisting of ambulatory clinics and hospital sitesin [place], [place], [place] and [place]. This disclosure is being madepursuant to the Care Everywhere program and may not contain all information available regarding this patient. Last updated 18.[facility] Allergies No known active allergies Medications Be [...] 9.56% 12/27 11:09 AM CDT Growth Chart: [facility] (Girls, 2- 20 Years) Plan of Treatment Not on file Care Teams Air Brake Rigger Relationship Specialty Start Date End Date Aric Obrien DO PCP - General Pediatrics 12/25/18
--- OUTSIDE RECORDS SUMMARY | 2024-04-13 06:47 | XMS_ITS | Encounter Summary ---
Author Organization [facility] Address [address] [place] [address] Care Team Providers Care Data Management Analyst Name Role Phone Unavailable Primary Care Provider Unavailabl e Encounter Details Date Type Department Care Team (Late st Contact Info) Description 03/27/2020 3:00 PM TRY ON BASTER Rapid Evaluation [facility] Community Testing [facility] [address] [place] [address] Social History Tobacco Use Types Packs/Day Years Used Date Smoking Tobacco: Never Assessed Comments Unknown Sex and Gender Information Value Date Recorded Sex Assigned at Not on file Legal Sex Female 2:53 PM TRY ON BASTER Gender Identity Not on file Sexual Orientation Not on file documented as of this encounter Plan of Treatment Not on file documented as of this encounter Visit Diagnoses Not on filedocumented in this encounter
--- OUTSIDE RECORDS SUMMARY | 2024-04-13 06:47 | XMS_ITS | Encounter Summary ---
Author Organization [facility] Address [address] [place] [address] Care Team Providers Care Warehouse Shipper Name Role Phone Aric Obrien DO Primary Care Provider [phone] Reason for Visit * Reason Comments Injury Finger right index finger * Evaluate & Treat (Routine) - Closed Specialty Diagnoses / Procedures Referred By Purnima t Referred To Contact Physician Regional Transportation Manager / Orthopedics [facility] Yari Anderson PA [address] [place] [address] Referral ID Status Reason Start Date Expiration Date Visits Re quested Visits Authorized [id number] Closed 12/20/2018 12/20/2019 4 4 Encounter Details Date Type Department Care Team (Latest Contact Info) Description 12/27/2018 10:57 AM CDT - 12/27/2018 11:59 PM CDT Hospital Encounter [facility] - Orthopedics [address] [place] [address] Yari Anderson PA [address] [place] [address] Discharge Disposition: Home or Self Care Social History Tobacco Use Types Packs/Day Years Used Date Smoking Tobacco: Never Smokeless Tobacco: Never Sex and Gender Information Value Date Recorded Sex Assigned at Not on file Gender Identity Not on file Sexual Orientation Not on file documented as of this encounter Last Filed Vital Signs Vital Sign Reading [...] 9.56% 12/27 11:09 AM CDT Growth Chart: [facility] (Girls, 2- 20 Years) documented in this encounter Discharge Instructions * Patient Instructions* Yari Anderson PA - 12/27/2018 11:37 AM CDT ORTHOPAEDIC CLINIC DISCHARGE INSTRUCTIONS SHEET Follow Up: As needed. Oscar tape index/long fingers when active for 2 weeks. School excuse: 12/27/2018 If you have any questions or concerns in the interim, or if you need to schedule surgery for your child, you may contact our orthopedic office at . If you need to make a clinic appointment, please call . documented in this encounter Progress Notes * Yari Anderson PA - 12/27/2018 11:30 AM CDT PEDIATRIC ORTHOPAEDIC CLINIC NOTE NAME: Neyda Campbell DATE OF SERVICE: 12/27/2018 DATE: 2005 PCP: Aric Obrien DO HISTORY: Neyda Campbell is a 13 year old 4 month old female, right hand dominant, who presents 1 month(s) status post a right index finger injury she sustained during volleyball. Neyda Campbell wassplinted at [facility] 1 week ago and presents for further evaluation. The patient rates her pain as a 0 out of 10. The patient denies new onset of numbness in her upper extremities. PAST MEDICAL HISTORY: Past Medical History: Diagnosis Date ??? Medical history reviewed with no changes PAST SURGICAL HISTORY: Past Surgical History: Procedure Laterality Date ??? NEGATIVE SURGICAL HISTORY MEDICATIONS: none ALLERGIES: Allergies as of 12/27/2018 ??? (No Known Allergies) IMMUNIZATIONS: Immunization status: stated as current, but no records available. SOCIAL HISTORY: Patient lives with her parents. she does attend school, 9th grade. She participatesin volleyball and basketball. FAMILY HISTORY: Negative for any genetic conditions affecting children. ROS: A 12 point review of systems was obtained today and is positive for what is stated above. PHYSICAL EXAMINATION: Ht 5' 5.75 (167 cm) Wt 101 lb 10.1 oz (40813 g) BMI 16.53 kg/m2 General appearance: alert, cooperative, no distress. She has good head control. No rashes or abnormal dyspigmentation Extremities: The uninjured left upper extremity was examined and demonstrated normal skin, normal range of motion and alignment of all joint, normal motor, sensory and vascular examination, and was without pain. It was used for comparison when examining the injured right upper extremity. General appearance: no acute distress The examination was performed out of splint/cast Skin: normal Swelling: mild at index finger PIP joint Tenderness: mild, located index finger PIP. Deformity: No ROM: slightly limited flexion at index finger PIP; otherwise normal Gait: normal Neurological Exam: normal Vascular Exam: normal; capillary refill brisk; radial pulse 2+ RADIOGRAPHS: AP, lateral, & oblique xrays of the right hand were assessed today. -Radiographic Assessment: They show volar plate avulsion fracture of the middle phalanx. ASSESSMENT: 1. Closed nondisplaced fracture of middle phalanx of right index finger, initial encounter PLAN: We recommend oscar tape her index and long fingers when active for 2 more weeks. she may now gradually resume all activities as tolerated. If she has any difficulties returning to activities, or any pain/problems in 3-4 weeks, we recommend they return to clinic. If she is doing well at that point, they do not need to follow up for this injury. The family was understanding of this plan and will follow up PRN. * Shelly Barnes RN - 12/27/2018 11:10 AM CDT - Reason for visit: right index finger - When & How it happened: 11/27 pt jammed finger in the ball when she went to block the dionna volleyball - Where & how was it treated: [facility] xrays on 12/20/18 had xrays and splinted. - Pain level 0 out of 10 documented in this encounter Plan of Treatment Not on file documented as of this encounter Visit Diagnoses Diagnosis Closed nondisplaced fracture of middle phalanx of right index finger, initial encounter- Primary Activity, volleyball (beach) (court) documented in this encounter Care Teams Warehouse Shipper Relationship Specialty Start Date End Date Aric Obrien DO PCP - General Pediatrics 12/25/18 documented as of this encounter
--- OUTSIDE RECORDS SUMMARY | 2024-04-13 06:47 | XMS_ITS | Clinical Summary ---
Author Organization [facility] Address [address] [place] [address] Care Team Providers Care Marketing Operations Intern Name Role Phone Aric Obrien DO Primary Care Provider [phone] Source Comments [facility],non-owned Affiliates and Associated Physician Practices is amultiple site organization consisting of ambulatory clinics and hospital sitesin [place], [place], [place] and [place]. This disclosure is being madepursuant to the Care Everywhere program and may not contain all information available regarding this patient. Last updated 18.[facility] Allergies No known active allergies Medications Be [...] Growth Chart: CDC (Girls, 2- 20 Years) Plan of Treatment Health Maintenance Due Date Last Done Comments HIV SCREENING 08/27/2019 HPV VACCINE (1 - 3-dose series) 08/27/2019 CHLAMYDIA/GONORRHEA SCREENING 2020 HEPATITIS C SCREENING 08/22/2022 DEPRESSION SCREENING 04/17/2023 DTAP/TDAP/TD VACCINES (1 - Tdap) 08/27/2023 HEPATITIS B VACCINE (1 of 3 - 19+ 3-dose series) 08/27/2023 COVID-19 VACCINE (1 - 2023-2 5 season) 2023 INFLUENZA VACCINE (#1) 2023 ZOSTER VACCINE (1 of 2) 2054 HIB VACCINE Aged Out No longer eligi ble based on patient's age to complete this topic MENINGOCOCCAL VACCINE Aged Out No armando karyn eligible based on patient's age to complete this topic PNEUMOCOCCAL VACCINE Aged Out No long er eligible based on patient's age to complete this topic Care Teams Marketing Operations Intern Relationship Specialty Start Date End Date Airc Obrien DO PCP - General Pediatrics 12/25/18
--- OUTSIDE RECORDS SUMMARY | 2024-04-13 06:47 | XMS_ITS | Clinical Summary ---
Author Organization 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 Gender Identity Not on file Sexual Orientation Not on file Plan of Treatment Health Maintenance Due Date Last Done Comments Hepatitis C Virus (HCV) Screening 2004 Human Papillomavirus (HPV) Immunization (3 - 2-dose series) 05/05/2016 01/08/2016, 11/03/2015 Meningococcal B Immunization (1 of 2 - Standard) 2020 Influenza Immunization (#1) 12/17/202312/17, 01/08/2016, 02/07/2012, Additional history exists SARS-COV-2 Immunization ( season) 2023 04/21/2021, 10/01/2020, 09/10/2020 Respiratory Syncytial Virus (RSV) Immunization (Adult) (1 - 1-dose 75+ series) 08/27/2079 Pneumococcal Immunization Combined Aged Out 2004 No longer eligible based on patient's age to complete this topic Hepatitis B Immunization Completed , 2004, 2004 Hepatitis A Immunization Discontinued 07/30/2009, 09/16 Measles Mumps Rubella (MMR) Immunization Discontinued 07/30/2009, 08/27/2005 Polio (IPV) Immunization Discontinued 010, 02/28/2006, 2004, Additional history exists Varicella Immunization Discontinued 07/30/2009, 2005 DTaP/Tdap/Td Immunization Discontinued 2015, 07/30/2009, 02/28/2006, Additional history exists Meningococcal Immunization (ACWY) Aged Out 11/03/2015 No longer eligible based on patient's age to complete this topic TdaP Immunization Completed 11/03/2015 Rotavirus Immunization Aged Out No lo nger eligible based on patient's age to complete this topic Insurance [facility] [employer] on file
--- OUTSIDE RECORDS SUMMARY | 2024-04-13 06:59 | XMS_ITS | Continuity of Care Document ---
Author Name [facility] Organization [facility] Care Team Providers Care Trouble Clerk Name Role Phone [facility] Unavailable Unavailable Problems Combined list of problems from Department of Defense and Veterans Affairs facilities. It does not include entries that were removed or entered in error. Problem Status Onset Date Problem Type Date of Resolution Comme nts Source Scoliosis, unspecified Active Condition [facility] Outpatient Physician Consultation Active Condition [facility] Medications Combined list of outpatient medications from [...] for more than 3 days., Pharmacy : [facility] Nostri l-Both (into the nose) Discont inued 11/29/2022 15.0 0055C[facility] Augmentin 875 mg-125 mg oral tablet 1 tab(s), Oral, every 12 hr, X 7 days, # 14 tab(s), 0 total refill(s ), Acute, 11/29/22 9:44:00 AM CDT, 1 tab(s) Oral every 12 hr,x7 days, Pharmacy : [facility] Oral (given by mouth) Discont inued 11/29/2022 14.0 0055C-3 [facility] Thiago Flonase 50 mcg/inh nasal spray 100 mcg, Nostril- Both, Daily, # 48 g, 3 total refill(s ), Maintena nce, 100 mcg Nostril- Both Daily, Pharmacy : [facility] Nostri l-Both (into the nose) Discont inued 11/29/2022 48.0 0055C-[address] [place], [place] [address]Bee Das HYDROXYCHLO ROQUINE SULFATE (HYDROXYCHL OROQUINE SULFATE), 200MG, TABLET, ORAL, [facility]ARM[facility], 500 ea. BOTTLE Active [id number] 2023 30 Pharmac y Data Transac [...] for congesti on.,PRN: congesti on, Pharmacy : [facility] Discont inued 11/29/2022 1.0 0055C-[address] [place], [place] [address]Bee Das phenylephri ne 10 mg oral tablet 1 tab(s), Oral, every 4 hr, PRN congesti on, not to exceed 4 doses/da y, # 36 tab(s), 0 total refill(s ), Acute, 1 tab(s) Oral every 4 hr,PRN:c ongestio n,Instr: not to exceed 4 doses/da y, Pharmacy : [facility] Oral (given by mouth) Discont inued 11/29/2022 36.0 0055C-[address] [place] [address] Thiago predniSONE 10 mg oral tablet See [...] tab daily for 7 days., Pharmacy : [facility] Ordered 70.0 0055C-[address] [place] [address] Thiago ZyrTEC 10 mg oral tablet 1 tab(s), Oral, Daily, PRN allergy symptoms , # 90 tab(s), 3 total refill(s ), Maintena nce, 1 tab(s) Oral Daily,IA N:allerg y symptoms , Pharmacy : [facility] Oral (given by mouth) Discont inued 11/29/2022 90.0 0055C-[address] [place] [address] Allergies, Adverse Reactions, Alerts Combined list of allergies from Department of Defense and Veterans Affairs facilities. It does not include entries that were removed or entered in error. Substance Category Reaction Severity Reaction type Status Date Reported Comments Source No Known Allergies Drug allergy (disorder) [facility] Immunizations Combined list of available immunizations from the Department of Defense and Veterans Affairs facilities. Immunization Series Date Given Administered By Site Reaction Lot Number CVX Code Drug Subgrade Tester Status Comments Source influenza, injectable, quadrivalent- pf [...] injectabl e, quadrival ent, preservat scott free [facility] tetanus-dipht h toxoids (Td) adult/adol 2020 zzAdam ht Arm [id number] 09 sanofi pasteur complet ed tetanus-d iphth toxoids (Td) adult/ado l 01/21/21 Given Ambulat ory Pharmac y tetanus-dipht h toxoids (Td) adult/adol 2020 [id number] 09 sanofi pasteur complet ed tetanus-d iphth toxoids (Td) adult/ado l 01/21/21 Given Ambulat ory Pharmac y tetanus and diphtheria toxoids, adsorbed, preservative free, for adult use (2 Lf of tetanus toxoid and 2 Lf of diphtheria toxoid) 1 2020 Unknown, Provider [id number] 09 Sanofi Pasteur (PMC) complet ed tetanus and diphtheri a toxoids, adsorbed, preservat scott free, for adult use (2 Lf of tetanus toxoid and 2 Lf of diphtheri a toxoid) [facility] meningococcal oligosacchari de (MCV4O) 2020 zKulwant ht Arm [id number] 136 GlaxoSmithKli ne complet ed meningoco ccal oligosacc haride (MCV4O) 11/20/20 Given Ambulat ory Pharmac y meningococcal oligosacchari de (MCV4O) 2020 [id number] 136 GlaxoSmithKli ne complet ed meningoco ccal oligosacc haride (MCV4O) 11/20/20 Given Ambulat ory Pharmac y meningococcal oligosacchari de (groups A, C, Y and W-135) diphtheria toxoid conjugate vaccine (MCV4O) 1 2020 Unknown, Provider [id number] 136 SmithKline (SKB) complet ed meningoco [...] injectable, quadrivalent- pf 2018 zzLef t Arm [id number] 150 Seqirus complet ed influenza , injectabl e, quadrival ent-pf 03/08/19 Given Ambulat ory Pharmac y influenza, injectable, quadrivalent- pf 2018 [id number] 150 Seqirus complet ed influenza , injectabl e, quadrival ent-pf 03/08/19 Given Ambulat ory Pharmac y Influenza, injectable, quadrivalent, preservative free 1 2018 Unknown, Provider [id number] 150 Seqirus (SEQ) complet ed Influenza , injectabl e, quadrival ent, preservat scott free DoD influenza, injectable, quadrivalent- pf 2017 zzLef t Arm [id number] 150 GlaxoSmithKli ne complet ed influenza , injectabl e, quadrival ent-pf 02/20/18 Given Ambulat ory Pharmac y influenza, injectable, quadrivalent- pf 2017 [id number] 150 [facility] influenza , injectabl e, quadrival ent-pf 02/20/18 Given Ambulat ory Pharmac y Influenza, injectable, quadrivalent, preservative free 1 2017 Unknown, Provider [id number] 150 [facility] (SKB) complet ed Influenza , injectabl e, quadrival ent, preservat scott free DoD meningococcal A,C,Y,W-135 (MCV4P) 2016 [facility] Arm [id number] 114 [employer] complet ed meningoco ccal A,C,Y,W-1 35 (MCV4P) 03/23/17 Given Ambulat ory Pharmac y tetanus, diphtheria, acellular pertu is 2016 zzL t Arm [id number] 115 [facility] complet ed tetanus, diphtheri a, acellular pertussis 03/23/17 Given Ambulat ory Pharmac y Influenza, inj, MDCK, quadrivalent- pf 2016 zzRig Arm [id number] 171 Seqirus complet ed Influenza , inj, MDCK, quadrival ent-pf 03/23/17 Given Ambulat ory Pharmac y Influenza, inj, MDCK, quadrivalent- pf 2016 [id number] 171 Seqirus complet ed Influenza , inj, MDCK, quadrival ent-pf 03/23/17 Given Ambulat ory Pharmac y tetanus, diphtheria, acellular pertu is 2016 [id number] 115 [facility] ne complet ed tetanus, diphtheri a, acellular pertussis 03/23/17 Given Ambulat ory Pharmac y meningococcal A,C,Y,W-135 (MCV4P) 2016 [id number] 114 [employer] ls complet ed meningoco ccal A,C,Y,W-1 35 (MCV4P) 03/23/17 Given Ambulat ory Pharmac y meningococcal polysaccharid e (groups A, C, Y and W-135) diphtheria toxoid conjugate vaccine (MCV4P) 1 2016 Unknown, Provider [id number] 114 [employer] Nilda. (NOV) complet ed meningoco ccal polysacch aride (groups A, C, Y and W-135) diphtheri a toxoid conjugate vaccine (MCV4P) DoD tetanus toxoid, reduced diphtheria toxoid, and acellular pertu is vaccine, adsorbed 1 2016 Unknown, Provider [id number] 115 [employer]line (SKB) complet ed tetanus toxoid, reduced diphtheri a toxoid, and acellular pertussis vaccine, adsorbed DoD Influenza, injectable, Madin Bonnie Canine Kidney, preservative free, quadrivalent 1 2016 Unknown, Provider [id number] 171 Seqirus (SEQ) complet ed Influenza , injectabl e, Madin [place] Canine Kidney, preservat scott free, quadrival ent DoD Human Papillomaviru s 9-valent vaccine 2016 zzLef t Arm [id number] 165 Merck & Company Inc complet ed Human Papilloma virus 9-valent vaccine 07/21/16 Given Ambulat ory Pharmac y Human Papillomaviru s 9-valent vaccine 2016 [id number] 165 Merck & Company Inc complet ed Human Papilloma virus 9-valent vaccine 07/21/16 Given Ambulat ory Pharmac y Human Papillomaviru s 9-valent vaccine 1 2016 Unknown, Provider [id number] 165 Merck (MSD) complet ed Human Papilloma [...] influenza, seasonal, injectable 2012 zzLef t Arm [id number] 141 sanofi pasteur complet ed influenza , seasonal, injectabl e 02/22/13 Given Ambulat ory Pharmac y influenza, seasonal, injectable 2012 [id number] 141 sanofi pasteur complet ed influenza , seasonal, injectabl e 02/22/13 Given Ambulat ory Pharmac y Influenza, seasonal, injectable 1 2012 Unknown, Provider [id number] 141 Sanofi Pasteur (PMC) complet ed Influenza , seasonal, injectabl e DoD influenza virus vaccine, live 2011 [id number] 111 Medimmune Inc comple t ed influenza virus vaccine, live 02/07/12 Given Ambulat ory Pharmac y influenza virus vaccine, live 2011 [id number] 111 Medimmune Inc comple t ed influenza virus vaccine, live 02/07/12 Given Ambulat ory Pharmac y influenza virus vaccine, live, attenuated, for intranasal use 5 2011 Unknown, Provider [id number] 111 MedImmune, Inc. (MED) complet ed influenza [...] months. 2) Encounters from the Department of [facility] facilities going back up to 280 months. Location Location Details Encounter Type Encounter Number Reason For Visit Attending Provider ADM Date DC Date Status Disposition Source [address] [place] [address])(Moo tt Flight Medicine Tm) TELE CONSULT [id number] Notes Entered by: LINDA COOL 29 Apr 2013 1553 ------- ------- ------- ------- -- Network Results -EMMANUEL REYNA 3 SUYAPA MORAN 04/[address] [place] [address] Thiago Jose Antonio [facility]S cott Flight Medicin e Tm) [address] [place] [address] Thiago [facility])(War rior Op Med Cln Tm A Ad) OUTPATIENT [id number] wart removal . DAISY MONTALVO 07/21 Released w/o Limitations [address] [place] [address] Thiago Jose Antonio [facility])(W arrior Op Med Cln Tm A Ad) [address] [place] [address])(Sco tt Peds Team Angel Luis) OUTPATIENT [id number] xb R knee pain/bu ckling/ / JOHNNY REED 11/08 Released w/o Limitations [address] [place] [address] Group Thiago KEMP ([facility])(S cott Peds Team Angel Luis) [address] [place] [address] Thiago VIRIDIANA [facility])(Min or Procedure Clinic) OUTPATIENT [id number] Pain in right knee INDIGO KEYS Dk 11/15 Released w/o Limitations [address] [place] [address] Group Thiago KEMP ([facility])(M inor Procedu re Clinic) [address] [place] [address] Thiago [facility])(Sco tt Peds Team Angel Luis) TELE CONSULT [id number] Notes Entered by: OTONIEL PINO 22 Dec 2016 1037 ------- ------- ------- ------- -- Network results Physica l Therapy 017 AMD CARLOS A MARIA 12/[address] [place] [address] Thiago JORGE LUISJose Antonio ([facility])(S cott Peds Team Angel Luis) [address] [place] [address] Thiago [facility])(Moo tt Peds Team Angel Luis) OUTPATIENT [id number] Mid [facility] [id number] CARLOS A MARIA 05/30 Released w/o Limitations [address] [place] [address] Thiago [facility])(S cott Peds Team Angel Luis) [address] [place] [address] Thiago [facility])(Moo tt Peds Team Angel Luis) OUTPATIENT [id number] nodule behind right ear and physica l CARLOS A MARIA 11/07 Released w/o Limitations [address] [place] [address] Thiago [facility])(S cott Peds Team Angel Luis) [address] [place] [address] Thiago [facility])(Sco tt Peds Team Angel Luis) TELE CONSULT [id number] Notes Entered by: KARLO ELLIS 13 Nov 2017 0730 ------- ------- ------- ------- -- X ray CARLOS A MARIA 11/[address] [place] [address] Thiago JORGE LUISB ([facility])(S cott Peds Team Angel Luis) [address] [place] [address] Thiago B [facility])(Sco tt Peds Team Angel Luis) OUTPATIENT [id number] 5 School / sports physica l [id number] TERESA CADENA 11/23 Released w/o Limitations [address] [place] [address] Group Thiago [facility])(S cott Peds Team Angel Luis) [address] [place] [address])([facility] tt Peds Team Angel Luis) TELE CONSULT [id number] Notes Entered by: KATHY HERNANDEZ 25 Dec 2018 0854 ------- ------- ------- ------- -- orthope dic referra l/ broken index finger right hand/Tu CIRA Helms 12/25 Referred for Appointment [address] [place] [address])(S cott Peds Team Angel Luis) [address] [place] [address])([facility] tt Peds Team Angel Luis) TELE CONSULT [id number] Notes Entered by: Madelyn ROBERTSON 01 Jan 2019 1449 ------- ------- ------- ------- -- Network results Ortho 12/28/19 19 RODNEYB TERESA CADENA 01/[address] [place] [address] Group [facility])(S cott Peds Team Angel Luis) [address] [place] [address])(Moo tt Peds Team Angel Luis) OUTPATIENT [id number] Rash on edie fac x 1 week TERESA CADENA 02/21 Released w/o Limitations [address] [place] [address])(S cott Peds Team Angel Luis) [address] [place] [address])(Moo tt Peds Team Angel Luis) TELE CONSULT [id number] Notes Entered by: CHAYITO CRISTINA 02 Oct 2019 1136 ------- ------- ------- ------- -- Sinan loomisa l/Turne r [phone] JOSEPH WALDRON 10/01 Other Not Elsewhere Classified [address] [place] [address])(S cott Peds Team Angel Luis) [address] [place] [address])(Moo tt Peds Team Angel Luis) TELE CONSULT [id number] Notes Entered by: ARAVIND BYRNE 10 Oct 2019 0928 ------- ------- ------- ------- -- Physica l/CIRA Cabral 10/09 Other Not Elsewhere Classified [address] [place] [address] Group [facility])(S cott Peds Team Angel Luis) [address] [place] [address])([facility] tt Peds Team Angel Luis) OUTPATIENT [id number] 3 School Physica l TERESA CADENA 11/14 Released w/o Limitations [address] [place] [address])(S cott Peds Team Angel Luis) [address] [place] [address])([facility] tt Peds Team Angel Luis) TELE CONSULT [id number] Notes Entered by: MARIELOS CHEATHAM 27 Mar 2020 0816 ------- ------- ------- ------- -- SX -Headac he, Fatigue - Positiv e Exposur e/ Micah/ - [facility] EDDI POP 03/27 Released to Self [facility] [address] [place] [address])(S cott Peds Team Angel Luis) [address] [place] [address])([facility] tt Peds Team Angel Luis) TELE CONSULT [id number] 2 Notes Entered by: Mary ENRIQUEZ 08 Oct 2020 0920 ------- ------- ------- ------- -- NAL Encount er/ L ankle Injury/ Gigi/ [phone] GIGIRIKKI NAIDA 10/[address] [place] [address])(S cott Peds Team Angel Luis) [address] [place] [address])([facility] tt Peds Team Angel Luis) TELE CONSULT [id number] 2 Notes Entered by: CINDY KIMBROUGH 08 Oct 2020 1333 ------- ------- ------- ------- -- ER F/U - Referra l request - [facility] ([facility] - EDDI Rai 10/08 Other Not Elsewhere Classified [address] [place] [address])(S cott Peds Team Angel Luis) [address] [place] [address])(Sco tt Peds Team Angel Luis) TELE CONSULT [id number] 9 Notes Entered by: Michael STEEL 23 Nov 2020 1015 ------- ------- ------- ------- -- F/u SHAWNA BENITEZ 11/[address] [place] [address])(S cott Peds Team Angel Luis) [address] [place] [address])(Spo rts Med Clinic/Pa in Mgmt) OUTPATIENT [id number] SPORT/L EFT ANKLE PAIN ARLINAL PEG HARMON 11/24 Released w/o Limitations [address] [place] [address])(S ports Med Clinic/ Pain Mgmt) [address] [place] [address])(Sco tt Peds Team Angel Luis) TELE CONSULT [id number] 5 Notes Entered by: Michael KEYS 26 Nov 2020 1055 ------- ------- ------- ------- -- Network results Physica l Therapy 021 SHAWNA FORDE 11/[address] [place] [address])(S cott Peds Team Angel Luis) [address] [place] [address])(Spo rts Med Clinic/Pa in Mgmt) TELE CONSULT [id number] Notes Entered by: GENARO PAINTING 11 Dec 2020 1626 ------- ------- ------- ------- -- result PEG HARMON 12/[address] [place] [address])(S ports Med Clinic/ Pain Mgmt) [address] [place] [address])(Sco tt Peds Team Angel Luis) TELE CONSULT [id number] 2 Notes Entered by: CINDY KIMBROUGH 25 Dec 2020 1221 ------- ------- ------- ------- -- Appt florinda - Rodrick - [phone] - ([facility] ED kelly) JACOB Mendosa 12/25 Other Not Elsewhere Classified [address] [place] [address] Group [facility])(S cott Peds Team Angel Luis) [address] [place] [address])(Moo tt Peds Team Angel Luis) OUTPATIENT [id number] Virtual f/u weight concern s SHAWNA STARR 01/01 Released w/o Limitations [address] [place] [address])(S cott Peds Team Angel Luis) [address] [place] [address])([facility] tt Peds Team Angel Luis) TELE CONSULT [id number] Notes Entered by: SHAWNA STARR 04 Jan 2021 1649 ------- ------- ------- ------- -- F/u MAAME Vickers 01/04 Referred for Appointment [address] [place] [address])(S cott Peds Team Angel Luis) [address] [place] [address])(Moo tt Peds Team Angel Luis) TELE CONSULT [id number] Notes Entered by: HSAWNA STARR 13 Jan 2021 0834 ------- ------- ------- ------- -- F/u symptom SHAWNA STARR 01/[address] [place] [address])(S cott Peds Team Angel Luis) [address] [place] [address])([facility] tt Peds Team Angel Luis) TELE CONSULT [id number] Notes Entered by: SHAWNA STARR 18 Jan 2021 1609 ------- ------- ------- ------- -- F/u JACOB Baig 01/18 Other Not Elsewhere Classified [address] [place] [address])(S cott Peds Team Angel Luis) [address] [place] [address])([facility] tt Peds Team Angel Luis) OUTPATIENT [id number] EKG/lab work visit SHAWNA STARR 01/19 Released w/o Limitations [address] [place] [address])(S cott Peds Team Angel Luis) [address] [place] [address])([facility] tt Peds Team Angel Luis) TELE CONSULT [id number] Notes Entered by: NATALIE TSAI 05 Feb 2021 1058 ------- ------- ------- ------- -- Rx Kj /RODRICK/ JIMBO QUESADA 02/05 Medication Refill Forwarded [address] [place] [address])(S cott Peds Team Angel Luis) [address] [place] [address])([facility] tt Peds Team Angel Luis) TELE CONSULT [id number] 5 Notes Entered by: RINKU COLLINS 23 Mar 2021 1307 ------- ------- ------- ------- -- Network Results Adolesc ent Medicin e 021 KSP SHAWNA STARR 03/[address] [place] [address])([facility] Angel Luis) [address] [place] [address])([facility] tt Peds Team Angel Luis) TELE CONSULT [id number] 5 Notes Entered by: SHAWNA STARR 25 Mar 2021 0747 ------- ------- ------- ------- -- Schedanabel e f/u appt. MAAME EMMANUEL 03/25 Other Not Elsewhere Classified [address] [place] [address])(S cott Peds Team Angel Luis) [address] [place] [address])([facility] tt Peds Team Angel Luis) OUTPATIENT [id number] F2F- Repeat EKG F/u [phone] SHAWNA STARR 03/25 Released w/o Limitations [address] [place] [address])([facility] Angel Luis) [address] [place] [address])([facility] Peds Team [facility]) TELE CONSULT [id number] Notes Entered by: MARLIN ROGER 23 May 2022 0759 ------- ------- ------- ------- -- Rash spreadi ng/THIAGO SM/Asbu MARLIN Conklin 05/23 Other Not Elsewhere Classified [address] [place] [address])([facility] Peds Team [facility]) [address] [place] [address])([facility] Peds Team [facility]) TELE CONSULT [id number] 9 Notes Entered by: MARLIN ROGER 07 Jun 2022 0343 ------- ------- ------- ------- -- [facility] follow up/rash /Moll MARLIN MANCUSO 06/07 Referred for Appointment [address] [place] [address])([facility] Peds Team [facility]) [address] [place] [address])([facility] Peds Team [facility]) OUTPATIENT [id number] [facility]- [facility] F/U, FACIAL RASH, WORSE, SEEK FURTHER JOHNNY LAMB 06/07 Released w/o Limitations [address] [place] [address])([facility]) [address] [place] [address])([facility] Peds Team [facility]) TELE CONSULT [id number] Notes Entered by: MARLIN ROGER 15 Jun 2022 1133 ------- ------- ------- ------- -- Facial swellin g/rash f/u-THIAGO SM/Asbu MARLIN Conklin 06/15 Other Not Elsewhere Classified [address] [place] [address])([facility] Peds Team [facility]) [address] [place] [address])(Sco tt Peds Team Angel Luis) OUTPATIENT [id number] body Rash SX persist , f2f appt DEREKJOHNNY Dk 06/27 Released w/o Limitations [address] [place] [address])(S cott Peds Team Ange Lluis) Procedures Combined list of: 1) Procedures from Department of Veterans Affairs facilities going back up to theut health tylert 18 months, not all VA non-surgical procedures are included; 2) All procedures from the Department of Defense facilities. Procedure Procedure Type Code Date Perfomer Comments Sourc e Psychometric Emotional / Behavioral A e ment Psychometric Emotional / Behavioral Assessment 95937 8 CARLOS A MARIA [facility] Screening Test Of Visual Acuity, Quantitative, Bilateral Screening Test Of Visual Acuity, Quantitative, Bilateral 75733 8 CARLOS A MARIA [facility] Destruction Of Flat Warts By Cryosurgery Up To 14 Lesions Destruction Of Flat Warts By Cryosurgery Up To 14 Lesions 72317 7 DAISY MONTALVO [facility] Screening Test Of Visual Acuity, Quantitative, Bilateral Screening Test Of Visual Acuity, Quantitative, Bilateral 90325 TERESA CADENA [facility] Non-Physician Phone Call To Patient/Provider Brief (5-10min) Non-Physician Phone Call To Patient/Provider Brief (5-10min) [id number] CIRA COHEN [facility] Non-Physician Phone Call To Pt/Provider Intermed (11-20 min) Non-Physician Phone Call To Pt/Provider Intermed (11-20 min) 98274 EDDI POP [facility] Ultrasound Ankle Left Ultrasound Ankle Left 40122 PEG HARMON Ankle orthosis, ankle gauntlet or similar, with or without joints, prefabricated, zto-kwc-nhrya FAUSTINOPEG BOTELLO [facility] ECG Standard ECG Standard 33703 ESTELLE STARR [facility] TELE ASSESS & MGT SRV PROV QUAL NONPHYS HLTH CARE PRO TO EST PAT,PARENT,GUARD NOT ORIG REL ASSESS & MGT SRV PROV W/IN PREV 7 DAYS NOR LEAD ASSESS & MGT SRV/PX W/IN NXT 24 HR/SOON APT;5-10 MIN MED DIS 1 [facility] ELECTROCARDIOGRAM, ROUTINE ECG WITH AT LEAST 12 [...] OR SIMILAR, WITH OR WITHOUT JOINTS, PREFABRICATED, [id number]-YNZ-[id number] 1 DoD TELE ASSESS & MGT SRV [...] LESIONS; UP TO 14 LESIONS 7 DoD Extraction, erupted tooth requiring removal of bone and/or sectioning of tooth, 1 0055C-358yn [facility] Social History Combined list of available smoking, tobacco, and other social history from Department of Defense and Veterans Affairs facilities. Social History Type Response Date Comment Sourc e Female 08/03/2022 Ambulatory Pha rmacy This section is an empty social history section. DoD Tobacco Never-cigarette user Cigarette use:. Never-other tobacco user (not cigarettes) Other Tobacco use:. Ambulatory Pharmacy Sexual Orientation Ambula tory Pharmacy Gender identity Ambulator y Pharmacy Assessment and Plan Combined list of future [...] [employer] and [employer] ([employer]).[facility] Functional [place]lin Measurement (FIM) Scale: 1 = Total Assistance (Subject = 0% +), 2 = Maximal Assistance (Subject = 25% +), 3 = Moderate Assistance (Subject = 50% +), 4 = Minimal Assistance (Subject = 75% +), 5 = Supervision, 6 = Modified Bucklin (Device), 7 = Complete Bucklin (Timely, Safely). Assessment Date/Time Source Assessment Type Assessment Skill Assessment Score Assessment Details No data available for this section
== END 2024-04-06 09:22 | disposition home or self-care (01) ==
PROVIDERS: Emergency Provider Nurse Practitioner Family; Referring Provider Emergency Medicine
DX: J03.90 Acute tonsillitis, unspecified (principal); Z20.822 Contact with and (suspected) exposure to COVID-19
CPT/HCPCS: 87081; 87426; 87804; 87880; 99213; G0463